=== PATIENT | male | born 1935 | race Caucasian/White ===

== ENCOUNTER 2018-04-13 22:37 | Emergency (ER) | payer MEDICARE, OTHER, SELFPAY ==
[2018-04-13 22:51] VITALS: BP 166/88; PULSE 84; RESP 18; TEMP 36.7; O2SAT 98; BMI 27.1
--- NOTE | 2018-04-13 23:10 | ED_ITS ---
HPI - Extremity Injury (Lower) General Chief Complaint: Extremity Injury, Lower Stated Complaint: FALL SKINNED UP LEFT KNEE WON'T STOP BLEEDING Time Seen by Provider: 04/13/18 23:00 Source: patient and family Mode of arrival: ambulatory Limitations: no limitations History of Present Illness HPI Narrative: This is an 82-year-old male who comes to the emergency department with complaint of oozing from a scrape on his left knee. Patient states he tripped while walking outside and landed on the concrete. Patient states he scraped his knee. He checked it after he got upstairs noticed that there was lot of blood running down. He takes Xarelto and has not been able to stop the bleeding since. This happened about 7 o'clock this evening. He states he was able to stand and walk without any issue. He denies any other injury. He does not have any bony tenderness. Patient states he just can't get the bleeding to stop. He takes the Xarelto because of a history of coronary artery disease as well as atrial fibrillation. He does have a pacemaker. He also has a history of a lumbar fusion, knee replacement on the right as well as ankle surgery. He denies any allergies. He states his tetanus is up-to-date. MD complaint: knee injury Related Data Home Medications Medication Instructions Recorded Confirmed FLUNISOLIDE (#NASAREL) 0.025 mg NS QDAY PRN #0 08/14/12 Glucosamine Sulfate (GLUCOSAMINE) 500 mg PO QDAY #0 08/14/12 OMEPRAZOLE 20 mg PO QDAY #0 08/14/12 VITAMIN B COMPLEX (Vitamin B 1 tab PO QDAY #0 08/14/12 Complex) amlodipine 10 mg PO QDAY #0 08/14/12 losartan [Cozaar] 100 mg PO QDAY #0 08/14/12 metformin [Glucophage] 2,500 mg PO BIDCC #0 08/14/12 naproxen sodium [Aleve] 220 mg PO BIDCC PRN #0 08/14/12 Allergies Allergy/AdvReac Type Severity Reaction Status Date / Time hydrocodone AdvReac Mild NAUSEA Unverified 10/22/17 12:04 Review of Systems Review of Systems All systems reviewed & are unremarkable except as noted in HPI and below Constitutional Denies weakness Musculoskeletal Reports as per HPI, Denies deformity, Denies joint swelling, Denies limited range of motion, Denies numbness, Reports stiffness and Reports other (Bleeding abrasion) Integumentary/Breasts Reports bleeding lesions Neurologic Denies numbness, Denies paresthesias and Denies weakness Hematologic/Lymphatic Reports easy bleeding (Secondary to Xarelto) PFSH Medical History Atrial fibrillation (Acute) Coronary artery disease (Acute) Pacemaker (Acute) Surgical History History of lumbar fusion (Acute) Social History Smoking Status: Never smoker Exam Narrative Exam Narrative: GENERAL: Alert and oriented x three, well-nourished, well- appearing male in mild distress HEENT: Head normocephalic, atraumati NECK: full range of motion EXTREMITIES: Normal range of motion, no clubbing or edema. Neurovascularly intact. Patient has a abrasion just inferior to the left patella, it is superficial but using bright red blood. Middle is stop it with direct pressure but it started immediately after pressures removed. Patient does not have any bony tenderness, he has full range of motion of his left lower extremity with no deformity. He has 5/5 muscle strength in his lower extremities and normal sensation. NEUROLOGICAL: Cranial nerves II through XII grossly intact. Moving all extremities SKIN: See above Initial Vital Signs Initial Vital Signs: Vital Signs Temperature 98.1 F 04/13/18 22:51 Pulse Rate 84 04/13/18 22:51 Respiratory Rate 18 04/13/18 22:51 Blood Pressure 166/88 H 04/13/18 22:51 Pulse Oximetry 98 04/13/18 22:51 Course Vital Signs - 8 hr 04/13/18 22:51 04/13/18 23:30 04/14/18 00:00 Temperature 98.1 F Pulse Rate 84 73 77 Respiratory Rate 18 16 Blood Pressure 166/88 H 138/70 Blood Pressure [Left Arm] 138/70 Pulse Oximetry 98 96 97 MDM - Extremity Injury (Lower) MDM Narrative Medical decision making narrative: The abrasion of the left knee was washed out here in the emergency department by nursing. Had a dry. Surgicel was placed on the abrasion as well as 2 pieces of Gel-Foam, followed by 4x4s and a Coban dressing. Patient was rechecked 25 min later on had no further oozing or bleeding. Was informed to keep the dressing on until tomorrow morning or noon and then he could remove this. He is to leave the Gel-Foam in place Um and rinse with warm soapy water twice daily. He is to continue all his home medications. Patent tetanus is up-to-date. Discharge Plan Departure Patient Disposition: Home Clinical Impression: Hemorrhage from wound, Abrasion of knee Discharge Date/Time: 04/14/18 00:00 Interventions: ED Discharge Assessment Last Done: 04/14/18 00:00 Activity Restrictions/Additional Instructions: Keep the bandage on your knee on for the next 12 hr remove around lunchtime tomorrow. If you're bandage is too tight or you are having numbness, color changes or other concerning signs loose in the bandage. Do not pull off the Gel -Foam or Surgicel. Allow this to fall off on its own. Wash the area twice daily with warm soapy water starting tomorrow. If you began to have bleeding, apply direct pressure for at least 10 min. If you continue to have active bleeding return to the emergency department. Prescriptions: No Action metformin [Glucophage] 500 MG tablet 2,500 mg PO BIDCC Qty: 0 RF: 0 losartan [Cozaar] 100 MG tablet 100 mg PO QDAY Qty: 0 RF: 0 FLUNISOLIDE (#NASAREL) 0.025 mg NS QDAY PRN Qty: 0 RF: 0 amlodipine 10 MG tablet 10 mg PO QDAY Qty: 0 RF: 0 Glucosamine Sulfate (GLUCOSAMINE) 500 mg PO QDAY Qty: 0 RF: 0 VITAMIN B COMPLEX (Vitamin B Complex) 1 tab PO QDAY Qty: 0 RF: 0 naproxen sodium [Aleve] 220 MG tablet 220 mg PO BIDCC PRN Qty: 0 RF: 0 OMEPRAZOLE 20 mg PO QDAY Qty: 0 RF: 0
[2018-04-13 23:30] VITALS: BP 138/70; PULSE 73; O2SAT 96
[2018-04-14] VITALS: BP 138/70; PULSE 77; RESP 16; O2SAT 97
== END 2018-04-14 | disposition home or self-care (01) ==
PROVIDERS: Emergency Provider Emergency Medicine
DX: S80.212A Abrasion, left knee, initial encounter (principal); R58 Hemorrhage, not elsewhere classified; W01.0XXA Fall on same level from slipping, tripping and stumbling without subsequent striking against object, initial encounter
CPT/HCPCS: 99282; 99283